=== PATIENT | male | born 1960 | race American Indian/Alaskan Native ===

== ENCOUNTER 2017-06-27 06:39 | Day surgery (SDC) | payer BC ==
[2017-06-27] MEDS ORDERED: NACL 0.9% 500 ML 500 ML IV SCH (07:00)
[2017-06-27 07:13] LABS: Basophils % (Auto) 0.8 % (0.0-1.8); Eosinophils # (Auto) 0.2 K/mm3 (0.0-0.4); Eosinophils % (Auto) 2.6 % (0.0-4.3); Hematocrit 41.9 % (35.5-45.6); Hemoglobin 14.1 gm/dl (11.8-15.2); Lymphocytes # (Auto) 1.8 K/mm3 (1.2-5.4); Lymphocytes % (Auto) 30.9 % (13.4-35.0); Mean Corpuscular HGB Conc 34 % (32-34); Mean Corpuscular Hemoglobin 32 pg (28-32); Mean Corpuscular Volume 96 fl (84-94); Monocytes # (Auto) 0.8 K/mm3 (0.0-0.8); Monocytes % (Auto) 13.4 % (0.0-7.3); Platelet Count 300 K/mm3 (140-440); Red Blood Count 4.37 M/mm3 (3.65-5.03)
[2017-06-27 07:24] LABS: INR 0.85 (0.87-1.13)
[2017-06-27 07:29] LABS: BUN/Creatinine Ratio 15; Blood Urea Nitrogen 12 mg/dL (9-20)
[2017-06-27 07:30] LABS: Calcium 9.2 mg/dL (8.4-10.2); Hemolysis Index 8
[2017-06-27] MEDS ORDERED: HEPARIN/NS 5000 UNIT/500ML(CATH LAB) 1,000 ML IR ONE (08:11)
[2017-06-27] MEDS ORDERED: HEPARIN 10,000 UNITS/10 ML ONE (08:11)
[2017-06-27] MEDS ORDERED: VERSED ONE (08:12)
[2017-06-27] MEDS ORDERED: XYLOCAINE 2% INFILTRATI ONE (08:12)
[2017-06-27] MEDS ORDERED: SUBLIMAZE ONE (08:12)
[2017-06-27] MEDS ORDERED: ANCEF/STERILE WATER 2 GM/20 ML 0 GM/0 ML SYRINGE IV ONE (08:12)
[2017-06-27] MEDS ORDERED: NITROGLYCERIN SYRINGE 0 ML ONE (08:51)
[2017-06-27] MEDS ORDERED: CALAN ONE (08:51)
--- NOTE | 2017-06-27 11:11 | Cardiac Catherization Report ---
PERIPHERAL ANGIOGRAM REPORT The patient is a 56-year-old -[place] gentleman with known coronary artery disease and ischemic cardiomyopathy, status post aortocoronary bypass surgery in the past, also known peripheral vascular disease, underwent intervention of the left common iliac artery with stent placement and intervention of the left common femoral and proximal SFA with atherectomy and drug-eluting balloon angioplasty on 10/31/2015. Subsequently, he is complaining of significant claudication. He is having claudication in the right calf area and walking less than half a mile and he has to stop. He still smokes and is aware of the harmful effects of smoking. Because of increasing right lower extremity pain, he is scheduled for further evaluation. The patient is aware of the procedure, potential complications and alternatives of therapy available. The patient was brought to the catheterization laboratory in a fasting condition. The patient was prepared and sterile drapes were applied. After " patient was sedated with IV Versed and fentanyl. Local anesthesia was given in the left wrist area. Left radial artery puncture was made using 21-gauge arterial puncture needle. A 5-Nigerian slender sheath was introduced. The patient received 5 mg of intra-arterial verapamil and 3000 units of intravenous heparin. Subsequently, using 5-Nigerian pigtail catheter, which was advanced to the L1-L2 area, abdominal aortogram was performed using 30 mL of dye at 15 mL per second. Subsequently, catheter was advanced to the bifurcation of the aorta into the common iliac arteries at L4-L5 area. Angiograms of the both lower extremities were obtained using 60 mL of dye at 10 mL per second. At the end of the procedure, catheter and sheath were removed. The patient tolerated the procedure well throughout the procedure. The patient was monitored with EKG and pressure monitoring in addition to pulse oximetry. The patient is awake, alert, oriented x 3. No complications were noted. Good hemostasis was achieved with pressure bandage. Only minimal blood loss noted. Following findings were noted: Abdominal Aorta: He is of normal caliber with minimal irregularities. No aneurysmal dilatation noted. Widely patent bilateral renal arteries noted and normal sized kidneys were noted. Pelvic Vessels: There is a patent stent in the left common iliac area. This is widely patent. There are mild irregularities of both external iliac arteries, but there appeared to be only mild. Common femoral arteries bilaterally appeared to be unremarkable. Left superficial femoral artery shows [id number] disease, 30% focal lesion in the proximal part. Distally, mild irregularities were noted. Left popliteal artery without significant disease and 3-vessel runoff was noted on the left side. Right common femoral artery without significant disease. Right SFA proximally and in the mid part without significant disease at the adductor canal and in the distal SFA, there is a calcific very tight lesion noted in the segmental area. Also, deep femoral artery supplying collateral to the distal SFA. Distal to the lesion distal SFA, right popliteal artery are unremarkable. Three-vessel runoff was noted distally. FINAL IMPRESSION: 1. Mild atherosclerotic disease of the aorta with patent renal arteries and no aneurysmal dilatation. 2. Widely patent left common iliac stent with mild to moderate disease in the external iliac arteries. Left femoral artery, popliteal and infrapopliteal arteries are unremarkable. 3. Right femoral artery shows severe segmental distal SFA lesion. Otherwise, proximal and mid SFA along with popliteal and infrapopliteal vessels are unremarkable on the right side. The patient at this time is having significant claudication along with segmental severe calcific right SFA lesion. Considering the above, we would consider intervention of the right distal SFA. The patient is already on appropriate treatment. JOB# [id number] LILIYA/JEFFY
[2017-06-27 12:45] VITALS: BP 106/71
--- NOTE | 2017-06-27 15:53 | Short Stay Summary ---
Short Stay Documentation Date of service: 06/27/17 - History H&P: obtained from office - Allergies and Medications Current Medications: Allergies No Known Allergies Allergy (Verified 10/29/15 06:50) Home Medications Medication Instructions Recorded Confirmed Last Taken Type Aspirin [Adult Low Dose Aspirin EC] 81 mg PO DAILY 10/29/15 06/27/17 06/26/17 History Atorvastatin [Lipitor Tab] 20 mg PO QHS 10/29/15 06/27/17 06/26/17 History Clopidogrel Bisulfate [Clopidogrel] 75 mg PO DAILY 10/29/15 06/27/17 06/26/17 History Lisinopril 20 mg PO DAILY 10/29/15 06/27/17 06/26/17 History Metoprolol Tartrate 25 mg PO BID 10/29/15 06/27/17 06/27/17 History - Brief post op/procedure progress note Date of procedure: 06/27/17 Pre-op diagnosis: PVD Post-op diagnosis: same Procedure: peripheral angiogram Anesthesia: local Estimated blood loss: none Condition: stable - Disposition Condition at discharge: Stable Disposition: DC-01 TO HOME OR SELFCARE - Discharge Diagnoses (1) CAD (coronary artery disease) Status: Chronic (2) Hx of CABG Status: Chronic (3) PVD (peripheral vascular disease) with claudication Status: Chronic Short Stay Discharge Plan Activity: advance as tolerated Diet: low fat, low cholesterol, low salt Wound: open to air, keep clean and dry, per your surgeon's advice Additional Instructions: Make follow up appointment with in 7 days- [phone] Follow up with: ARIANNA FIGUEROA MD [Primary Care Provider] - 7 Days Forms: Work/School Excuse Out Patient, Post Arteriogram Instruct, Post Sedation D/C Instructions
== END 2017-06-27 13:15 | disposition home or self-care (01) ==
LOC: CATHLABREC 06:39
PROVIDERS: ATTEND Internal Medicine
DX: I70.211 Atherosclerosis of native arteries of extremities with intermittent claudication, right leg (principal); E78.5 Hyperlipidemia, unspecified; I25.10 Atherosclerotic heart disease of native coronary artery without angina pectoris; F17.210 Nicotine dependence, cigarettes, uncomplicated; Z79.01 Long term (current) use of anticoagulants; Z95.5 Presence of coronary angioplasty implant and graft
CPT/HCPCS: 36200; 36415; 75625; 75716; 80048; 85025; 85610; 85730; 99156; 99157; C1894; J1644; J2250; J3010; J7040; J0690; Q9967

== ENCOUNTER 2017-07-18 06:37 | Day surgery (SDC) | payer BC ==
[2017-07-18 07:20] LABS: Basophils # (Auto) 0.1 K/mm3 (0.0-0.1); Basophils % (Auto) 1.2 % (0.0-1.8); Eosinophils # (Auto) 0.2 K/mm3 (0.0-0.4); Eosinophils % (Auto) 4.1 % (0.0-4.3); Hematocrit 38.1 % (35.5-45.6); Hemoglobin 12.7 gm/dl (11.8-15.2); Lymphocytes # (Auto) 1.8 K/mm3 (1.2-5.4); Lymphocytes % (Auto) 31.2 % (13.4-35.0); Mean Corpuscular HGB Conc 33 % (32-34); Mean Corpuscular Hemoglobin 32 pg (28-32); Mean Corpuscular Volume 97 fl (84-94); Monocytes # (Auto) 0.6 K/mm3 (0.0-0.8); Monocytes % (Auto) 10.9 % (0.0-7.3); Platelet Count 287 K/mm3 (140-440); Red Blood Count 3.93 M/mm3 (3.65-5.03)
[2017-07-18 07:29] LABS: INR 0.84 (0.87-1.13)
[2017-07-18 07:31] LABS: BUN/Creatinine Ratio 16; Blood Urea Nitrogen 13 mg/dL (9-20); Calcium 9.2 mg/dL (8.4-10.2); Hemolysis Index 7
[2017-07-18] MEDS ORDERED: NACL 0.9% 500 ML 500 ML IV SCH (08:00)
[2017-07-18] MEDS ORDERED: XYLOCAINE 1% 20 mL ONE (08:16)
[2017-07-18] MEDS ORDERED: HEPARIN 10,000 UNITS/10 ML ONE (08:16)
[2017-07-18] MEDS ORDERED: HEPARIN/NS 5000 UNIT/500ML(CATH LAB) 1,000 ML IR ONE (08:16)
[2017-07-18] MEDS ORDERED: VERSED ONE (08:17)
[2017-07-18] MEDS ORDERED: SUBLIMAZE ONE (08:17)
[2017-07-18] MEDS ORDERED: HEPARIN/NS 5000 UNIT/500ML(CATH LAB) 500 ML IR ONE (08:38)
[2017-07-18] MEDS ORDERED: PLAVIX ONE (10:17)
[2017-07-18] MEDS ORDERED: ALUM-MAG HYDROX-SIMETH 200-200-20MG/5ML ONE (10:17)
[2017-07-18 12:52] VITALS: BP 106/77
--- NOTE | 2017-07-18 14:25 | Cardiac Catherization Report ---
INDICATION FOR PROCEDURE: The patient is a 56-year-old -[place] gentleman with history of right leg claudication of many years' duration, getting worse and is limiting his activities. He had peripheral angiogram done a few weeks ago, which showed significant calcific distal SFA lesion. Because of severe symptoms along with severe lesion noted in the distal SFA, the patient was recommended of the intervention of the same and he is made aware of the alternatives of medical therapy. The patient is willing to have the procedure done. The patient is aware of the procedure, potential complications, and alternatives of therapy available. DESCRIPTION OF PROCEDURE: The patient was brought to the catheterization laboratory in a fasting condition. The patient was evaluated for moderate sedation. When he was felt appropriate, he was sedated with IV Versed and fentanyl. The patient was prepared in the standard sterile fashion. Sterile drapes were applied. Local anesthesia was given in the left groin area. Left femoral artery puncture was made using 5-Lao micropuncture needle. A 5-Lao sheath was introduced. A 0.035 inch Advantage guidewire was advanced into the right popliteal artery without difficulty. A 5-Lao sheath was changed to 6-Lao 45 cm Destination sheath with the tip landed in the right proximal SFA. An angiogram of the right femoral artery was obtained from the proximal SFA to distal vessels. This showed severe calcific long lesion approaching 80-90% in the distal SFA. The patient was given heparin as the anticoagulant. Trailblazer catheter was used over the Advantage wire and a spider filter wire was advanced into the distal SFA. Initially HawkOne-M catheter was advanced, but could not pass the lesion, hence the lesion had to be dilated with a 3.0 x 18 mm Kane plus balloon. Afterwards subsequently, a HawkOne 6-Lao M catheter was used to do multiple passes of atherectomy and it required multiple passes because of significant calcification noted. A large amount of tissue was obtained when atherectomy catheter was clean. Subsequently, lesion was dilated with 5.0 mm x 120 mm IN.PACT Admiral balloon up to 3 minutes at 8 atmospheres. Very good result was obtained. Lesion was reduced from 80-90% to almost no residual stenosis noted. Final angiogram showed distal vessels to be widely patent. After obtaining the final angiograms and when the result was found to be satisfactory, destination sheath was pulled back to the left external iliac area. This destination catheter was exchanged with a 6-Lao Perclose device, which was applied in a standard fashion and good hemostasis was achieved. The patient tolerated the procedure well. No hematoma was noted in the left groin. The patient is without any symptoms of leg pain at the end of the procedure. Vital signs have been stable. Telemetry showed sinus rhythm. The patient received IV sedation with fentanyl and Versed from 9:06 a.m. to 10:16 a.m. No untoward complications were noted. The patient tolerated the sedation well and was breathing normally and communicating normally at the end of the procedure. FINAL IMPRESSION: Uncomplicated balloon angioplasty followed by atherectomy and drug-coated balloon intervention of distal SFA on the right side with very good result. No complications were noted at the end of the procedure. No evidence of dissection or perforation noted.. No flow limiting lesions were noted at the end of the procedure. Good distal runoff was noted on the final angiogram. Good hemostasis was achieved with Perclose device. The patient tolerated the IV sedation well. The patient will be monitored for next 3-4 hours in the outpatient area and will be discharged home when stable. Findings were explained to the patient and the . JOB# [id number] LILIYA/JEFFY ALCALA
--- NOTE | 2017-07-20 11:12 | Short Stay Summary ---
Short Stay Documentation Date of service: 07/18/17 - History H&P: obtained from office - Allergies and Medications Current Medications: Allergies No Known Allergies Allergy (Verified 10/29/15 06:50) Home Medications Medication Instructions Recorded Confirmed Last Taken Type Aspirin [Adult Low Dose Aspirin EC] 81 mg PO DAILY 10/29/15 07/18/17 07/17/17 History Atorvastatin [Lipitor Tab] 20 mg PO QHS 10/29/15 07/18/17 07/17/17 History Clopidogrel Bisulfate [Clopidogrel] 75 mg PO DAILY 10/29/15 07/18/17 07/17/17 History Lisinopril 20 mg PO DAILY 10/29/15 07/18/17 07/17/17 History Metoprolol Tartrate 25 mg PO BID 10/29/15 07/18/17 07/18/17 05:30 History - Brief post op/procedure progress note Date of procedure: 07/18/17 Pre-op diagnosis: PAD Post-op diagnosis: same Procedure: peripheral angiogram with intervention of right distal SFA - see cath report Anesthesia: local Estimated blood loss: none Condition: stable - Disposition Condition at discharge: Stable Disposition: DC-01 TO HOME OR SELFCARE - Discharge Diagnoses (1) CAD (coronary artery disease) Status: Chronic (2) Hx of CABG Status: Chronic (3) PVD (peripheral vascular disease) with claudication Status: Chronic Short Stay Discharge Plan Activity: advance as tolerated Diet: low fat, low cholesterol, low salt Wound: open to air, keep clean and dry, per your surgeon's advice Follow up with: ARIANNA FIGUEROA MD [Primary Care Provider] - 7 Days Forms: Work/School Excuse Out Patient, Post Arteriogram Instruct
== END 2017-07-18 13:30 | disposition home or self-care (01) ==
LOC: CATHLABREC 06:37
PROVIDERS: ATTEND Internal Medicine
DX: I70.211 Atherosclerosis of native arteries of extremities with intermittent claudication, right leg (principal); I10 Essential (primary) hypertension; I25.2 Old myocardial infarction; E78.5 Hyperlipidemia, unspecified; F17.200 Nicotine dependence, unspecified, uncomplicated; Z79.01 Long term (current) use of anticoagulants; Z95.1 Presence of aortocoronary bypass graft
CPT/HCPCS: 36415; 37225; 80048; 85025; 85610; 85730; 99156; 99157; C1714; C1725; C1760; C1769; C1884; C1887; J1644; J2250; J3010; J7040; Q9967

== ENCOUNTER 2021-01-29 14:41 | Outpatient (CLI) | payer BC ==
[2021-01-29 15:38] LABS: Alanine Aminotransferase 30 units/L (7-56); Albumin 4.5 g/dL (3.9-5); BUN/Creatinine Ratio 18; Blood Urea Nitrogen 16 mg/dL (9-20); Calcium 9.6 mg/dL (8.4-10.2); Hemolysis Index 40
[2021-01-29 17:10] LABS: Erythrocyte Sedimentation Rate 4 mm/Hr (0-20)
[2021-01-29 17:14] LABS: Hematocrit 30.9 % (35.5-45.6); Hemoglobin 10.4 gm/dl (11.8-15.2); Mean Corpuscular HGB Conc 34 % (32-34); Mean Corpuscular Volume 94 fl (84-94); Platelet Count 458 K/mm3 (140-440); Red Blood Count 3.28 M/mm3 (3.65-5.03); Red Cell Distribution Width 15.7 % (13.2-15.2)
[2021-01-29 23:47] LABS: Total Cells Counted 100
[2021-01-29 23:48] LABS: Platelet Estimate Consistent w Auto; RBC Morphology Normal
== END 2021-01-29 14:42 | disposition home or self-care (01) ==
LOC: LAB 14:41
PROVIDERS: ATTEND Specialist
DX: G61.9 Inflammatory polyneuropathy, unspecified (principal)
CPT/HCPCS: 36415; 80053; 82306; 82607; 83036; 83921; 85007; 85025; 85652; 86038; 86334; 86592